=== PATIENT | male | born 1945 ===

== ENCOUNTER 2020-12-17 16:50 | Emergency (ER) | payer MEDICARE, BC ==
--- NOTE | 2020-12-17 17:03 | EDM.PDOC ---
ED HPI GENERAL MEDICAL PROBLEM - General Chief Complaint: Respiratory Problem Stated Complaint: SOB Time Seen by Provider: 12/17/20 17:00 Source of Information: Reports: Patient - History of Present Illness INITIAL COMMENTS - FREE TEXT/NARRATIVE: Patient comes emergency department today by ambulance with concerns of shortness of breath. This patient has a history of chronic kidney disease stage V for which she is on dialysis Friday and Friday. He typically in the [facility]. He is her on vacation. He has a history of CKD end-stage on dialysis hypertension diabetes COPD for which he typically is on a trelogy vent at home. The patient missed his dialysis run yesterday because he had chest pain status post a fall out of his wheelchair he was seen at [facility] emergency department. He was set up to have dialysis tomorrow. But today he has had increasing shortness of breath even at home when he is on his trilogy ventilator at home. He has had no fever or chills. No cough or congestion. He has had some tightness in his chest which is consistent with his shortness of breath when he is fluid overloaded. He has had no weakness dizziness lightheadedness. He is quite dyspneic. No abdominal pain nausea or vomiting. He denies any loss of taste or smell. He has received his Covid vaccine. - Related Data Allergies Allergy/AdvReac Type Severity Reaction Status Date / Time metoprolol Allergy Other Verified 12/17/20 17:04 Penicillins Allergy Other Verified 12/17/20 17:04 Home Meds: Home Meds Albuterol [Proventil HFA] 2 puff INH Q4HR PRN 12/17/20 [History] Apixaban [Eliquis] 1 tab PO BID 12/17/20 [History] Calcium Carbonate [Tums] 1 tab PO BID PRN 12/17/20 [History] Citalopram [Citalopram HBr] 1 tab PO DAILY 12/17/20 [History] Diltiazem HCl [Diltiazem 24Hr Cd] 1 tab PO BID 12/17/20 [History] Esomeprazole Magnesium [Nexium] 1 cap PO BID 12/17/20 [History] Fluticasone/Umeclidin/Vilanter [Trelegy Ellipta 100-62.5-25 MCG] 1 puff INH DAILY 12/17/20 [History] Insulin Aspart [NovoLOG] 10 unit SQ TIDMEALS 12/17/20 [History] Insulin Glargine,Hum.Rec.Anlog [Touchono Max Solostar] 34 unit SQ BEDTIME 12/17/20 [History] Lacosamide [Vimpat] 1 tab PO BID 12/17/20 [History] Lactobacill 46/B.animal/Inulin [Probiotic-10 10 Bill Cell Cap] 1 cap PO DAILY 12/17/20 [History] Melatonin 1 tab PO BEDTIME 12/17/20 [History] Mirtazapine [Remeron] 1 tab PO BEDTIME 12/17/20 [History] Multivitamin [Daily Landon] 1 tab PO DAILY 12/17/20 [History] Phenytoin Sodium Extended [Dilantin] 2 cap PO BID 12/17/20 [History] Pregabalin [Lyrica] 1 cap PO BEDTIME 12/17/20 [History] Sevelamer Carbonate 3 tab PO BID 12/17/20 [History] atorvaSTATin [Lipitor] 2 tab PO BEDTIME 12/17/20 [History] levETIRAcetam [Keppra] 1 tab PO BID 12/17/20 [History] oxyCODONE 1 tab PO Q6HR PRN 12/17/20 [History] ED ROS GENERAL - Review of Systems Review Of Systems: Comprehensive ROS is negative, except as noted in HPI. ED EXAM, GENERAL - Physical Exam Exam: See Below Exam Limited By: No Limitations General Appearance: Alert, WD/WN, No Apparent Distress, Obtunded, Moderate Distress (He is in moderate respiratory distress. He is only able to speak in 2-3 word sentences. He does have some seesaw respirations.), Obese. No: Lethargic Eye Exam: Bilateral Eye: EOMI, PERRL Ears: Normal External Exam Nose: Normal Inspection Throat/Mouth: Normal Inspection Head: Atraumatic, Normocephalic Neck: Normal Inspection Respiratory/Chest: Respiratory Distress (Moderate only able to speak in 2-3 word sentences), Decreased Breath Sounds, Rales (Bilaterally), Wheezing (Expiratory wheezing), Accessory Muscle Use Cardiovascular: Normal Peripheral Pulses, Regular Rate, Rhythm, Other (Distant heart tones) GI/Abdominal: Normal Bowel Sounds, Soft, Non-Tender (Male) Exam: Deferred Rectal (Males) Exam: Deferred Back Exam: Normal Inspection Extremities: Normal Inspection (Fistula left arm. Left lower extremity previous amputation. No cyanosis), Pedal Edema (3+ pitting right lower extremity) Neurological: Alert, Oriented. No: Confused, Disoriented, Slow to Respond, Unresponsive Psychiatric: Flat Affect Skin Exam: Warm, Dry, Intact, Normal Color, No Rash Course - Vital Signs Last Recorded V/S: Last Vital Signs Temp 96.2 F L 12/17/20 16:50 Pulse 77 12/17/20 16:50 Resp 20 12/17/20 16:50 BP 134/57 L 12/18/20 00:33 Pulse Ox 97 12/18/20 00:33 - Orders/Labs/Meds Orders: Active Orders 24 hr Category Date Time Status Accu Check [Blood Glucose Check, Bedside] [RC] ONETIME Care 12/17/20 20:55 Active Accu Check [Blood Glucose Check, Bedside] [RC] ONETIME Care 12/18/20 00:30 Active BIPAP Adult [RT BiPAP/CPAP] [RC] ASDIRECTED Care 12/17/20 17:05 Active EKG Documentation Completion [RC] ASDIRECTED Care 12/18/20 00:28 Active Peripheral IV Care [RC] . DIRECTED Care 12/17/20 17:04 Active RT Aerosol Therapy [RC] ASDIRECTED Care 12/17/20 22:43 Active Chest 1V Frontal [CR] Stat Exams 12/17/20 17:03 Taken Sodium Chloride 0.9% [Saline Flush] Med 12/17/20 17:04 Active 10 ml FLUSH ASDIRECTED PRN Peripheral IV Insertion Adult [OM.PC] Stat Oth 12/17/20 17:03 Ordered Medication Orders Sodium Chloride (Sodium Chloride 0.9% 10 Ml Syringe) 10 ml FLUSH ASDIRECTED PRN PRN Reason: Keep Vein Open Last Admin: 12/17/20 18:58 Dose: 10 ml Documented by: Admin: 12/17/20 17:25 Dose: 10 ml Documented by: JULIO Labs: Laboratory Tests 12/17/20 12/17/20 12/17/20 Range/Units 17:30 17:30 17:30 WBC 8.3 (4.0-10.2) K/uL RBC 3.82 L (4.33-5.41) M/uL Hgb 12.2 L (13.1-16.8) g/dL Hct 37.7 L (39.0-49.0) % MCV 98.7 H (84.0-98.0) fL MCH 31.9 (28.2-33.3) pg MCHC 32.4 (31.7-36.0) g/dL RDW 16.4 H (11.2-14.1) % Plt Count 253 (150-350) K/uL Neut % (Auto) 75.9 (45.0-80.0) % Lymph % (Auto) 11.8 (10.0-50.0) % [place] % (Auto) 10.0 (2.0-14.0) % Eos % (Auto) 1.7 (0.0-5.0) % Baso % (Auto) 0.6 (0.0-2.0) % Neut # (Auto) 6.32 (1.40-7.00) K/uL Lymph # (Auto) 0.98 (0.50-3.50) K/uL [place] # (Auto) 0.83 (0.00-1.00) K/uL Eos # (Auto) 0.14 (0.00-0.50) K/uL Baso # (Auto) 0.05 (0.00-0.20) K/uL POC VBG pH 7.33 (7.31-7.41) POC VBG pCO2 48 (41-51) mmHg POC VBG pO2 132 mmHg POC VBG HCO3 26 (23-28) mmol/L POC Venous O2 Sat 99 % VBG Base Excess 0 (-(2)-3) mmol/L Sodium 136 (136-145) mmol/L Potassium 8.1 H* (3.5-5.1) mmol/L Chloride 98 (98-107) mmol/L Carbon Dioxide 23.9 (21.0-32.0) mmol/L POC Venous Total CO2 27 mmol/L Anion Gap 22.2 H (7-15) meq/L BUN 77 H (7-18) mg/dL Creatinine 10.47 H* (0.51-1.17) mg/dL Est Cr Clr Drug Dosing 6.59 mL/min Estimated GFR (MDRD) 5 mL/min Glucose 240 H (70-99) mg/dL POC Glucose (70-99) mg/dL Lactic Acid (0.4-2.0) mmol/L Calcium 7.8 L (8.5-10.1) mg/dL Magnesium (1.8-2.4) mg/dL Total Bilirubin 0.4 (0.2-1.0) mg/dL AST 26 (15-37) U/L ALT 22 (12-78) U/L Alkaline Phosphatase 195 H (46-116) IU/L Troponin I High Sens 13 (<=76) ng/L C-Reactive Protein 3.3 H (<=0.9) mg/dL NT-Pro-B Natriuret Pep 91980 H (0-125) pg/mL Total Protein 7.3 (6.4-8.2) g/dL Albumin 3.5 (3.4-5.0) g/dL SARS-CoV-2 Ag (Rapid) (NEGATIVE) 12/17/20 12/17/20 12/17/20 Range/Units 17:55 19:10 21:30 WBC (4.0-10.2) K/uL RBC (4.33-5.41) M/uL Hgb (13.1-16.8) g/dL Hct (39.0-49.0) % MCV (84.0-98.0) fL MCH (28.2-33.3) pg MCHC (31.7-36.0) g/dL RDW (11.2-14.1) % Plt Count (150-350) K/uL Neut % (Auto) (45.0-80.0) % Lymph % (Auto) (10.0-50.0) % [place] % (Auto) (2.0-14.0) % Eos % (Auto) (0.0-5.0) % Baso % (Auto) (0.0-2.0) % Neut # (Auto) (1.40-7.00) K/uL Lymph # (Auto) (0.50-3.50) K/uL [place] # (Auto) (0.00-1.00) K/uL Eos # (Auto) (0.00-0.50) K/uL Baso # (Auto) (0.00-0.20) K/uL POC VBG pH (7.31-7.41) POC VBG pCO2 (41-51) mmHg POC VBG pO2 mmHg POC VBG HCO3 (23-28) mmol/L POC Venous O2 Sat % VBG Base Excess (-(2)-3) mmol/L Sodium (136-145) mmol/L Potassium 7.6 H* (3.5-5.1) mmol/L Chloride (98-107) mmol/L Carbon Dioxide (21.0-32.0) mmol/L POC Venous Total CO2 mmol/L Anion Gap (7-15) meq/L BUN (7-18) mg/dL Creatinine (0.51-1.17) mg/dL Est Cr Clr Drug Dosing mL/min Estimated GFR (MDRD) mL/min Glucose (70-99) mg/dL POC Glucose (70-99) mg/dL Lactic Acid 1.6 (0.4-2.0) mmol/L Calcium (8.5-10.1) mg/dL Magnesium (1.8-2.4) mg/dL Total Bilirubin (0.2-1.0) mg/dL AST (15-37) U/L ALT (12-78) U/L Alkaline Phosphatase (46-116) IU/L Troponin I High Sens (<=76) ng/L C-Reactive Protein (<=0.9) mg/dL NT-Pro-B Natriuret Pep (0-125) pg/mL Total Protein (6.4-8.2) g/dL Albumin (3.4-5.0) g/dL SARS-CoV-2 Ag (Rapid) Negative (NEGATIVE) 12/17/20 12/17/20 12/17/20 Range/Units 21:30 21:48 23:50 WBC (4.0-10.2) K/uL RBC (4.33-5.41) M/uL Hgb (13.1-16.8) g/dL Hct (39.0-49.0) % MCV (84.0-98.0) fL MCH (28.2-33.3) pg MCHC (31.7-36.0) g/dL RDW (11.2-14.1) % Plt Count (150-350) K/uL Neut % (Auto) (45.0-80.0) % Lymph % (Auto) (10.0-50.0) % [place] % (Auto) (2.0-14.0) % Eos % (Auto) (0.0-5.0) % Baso % (Auto) (0.0-2.0) % Neut # (Auto) (1.40-7.00) K/uL Lymph # (Auto) (0.50-3.50) K/uL [place] # (Auto) (0.00-1.00) K/uL Eos # (Auto) (0.00-0.50) K/uL Baso # (Auto) (0.00-0.20) K/uL POC VBG pH (7.31-7.41) POC VBG pCO2 (41-51) mmHg POC VBG pO2 mmHg POC VBG HCO3 (23-28) mmol/L POC Venous O2 Sat % VBG Base Excess (-(2)-3) mmol/L Sodium (136-145) mmol/L Potassium 6.0 H* D (3.5-5.1) mmol/L Chloride (98-107) mmol/L Carbon Dioxide (21.0-32.0) mmol/L POC Venous Total CO2 mmol/L Anion Gap (7-15) meq/L BUN (7-18) mg/dL Creatinine (0.51-1.17) mg/dL Est Cr Clr Drug Dosing mL/min Estimated GFR (MDRD) mL/min Glucose (70-99) mg/dL POC Glucose 102 H (70-99) mg/dL Lactic Acid (0.4-2.0) mmol/L Calcium (8.5-10.1) mg/dL Magnesium 2.4 (1.8-2.4) mg/dL Total Bilirubin (0.2-1.0) mg/dL AST (15-37) U/L ALT (12-78) U/L Alkaline Phosphatase (46-116) IU/L Troponin I High Sens (<=76) ng/L C-Reactive Protein (<=0.9) mg/dL NT-Pro-B Natriuret Pep (0-125) pg/mL Total Protein (6.4-8.2) g/dL Albumin (3.4-5.0) g/dL SARS-CoV-2 Ag (Rapid) (NEGATIVE) Meds: Medications Generic Name Dose Route Start Last Admin Trade Name Kristin PRN Reason Stop Dose Admin Sodium Chloride 10 ml 12/17/20 17:04 12/17/20 18:58 Sodium Chloride 0.9% 10 Ml Syringe FLUSH 10 ml ASDIRECTED PRN Administration Keep Vein Open Discontinued Medications Generic Name Dose Route Start Last Admin Trade Name Kristin PRN Reason Stop Dose Admin Albuterol 10 mg 12/17/20 22:42 12/17/20 22:59 Albuterol 0.083% 2.5 Mg/3 Ml Neb Soln NEB 12/17/20 22:43 10 mg ONETIME ONE Administration Dextrose/Water 50 ml 12/17/20 18:31 12/17/20 18:53 50% Dextrose In Water 50 Ml Syringe IVPUSH 12/17/20 18:32 50 ml ONETIME ONE Administration Dextrose/Water 50 ml 12/17/20 22:10 12/17/20 22:25 50% Dextrose In Water 50 Ml Syringe IVPUSH 12/17/20 22:11 50 ml ONETIME ONE Administration Dextrose/Water Confirm 12/18/20 00:50 50% Dextrose In Water 50 Ml Syringe Administered 12/18/20 00:51 Dose 50 ml .ROUTE .STK-MED ONE Dextrose/Water 50 ml 12/18/20 00:52 50% Dextrose In Water 50 Ml Syringe IVPUSH 12/18/20 00:53 ONETIME ONE Furosemide 120 mg 12/17/20 21:56 12/17/20 22:35 Furosemide 40 Mg/4 Ml Vial IVPUSH 12/17/20 21:57 120 mg NOW ONE Administration Nitroglycerin/Dextrose 25 mg in 250 mls @ 6 mls/hr 12/17/20 17:15 Nitroglycerin 25 Mg/D5w 250 Ml IV TITRATE NINFA Protocol 10 MCG/MIN Calcium Gluconate 1 gm/ Sodium 110 mls @ 100 mls/hr 12/17/20 18:31 12/17/20 19:04 Chloride IV 12/17/20 19:36 100 mls/hr NOW STA Administration Calcium Gluconate 1 gm/ Sodium 110 mls @ 100 mls/hr 12/17/20 22:17 12/17/20 22:44 Chloride IV 12/17/20 23:22 100 mls/hr NOW STA Administration Insulin Human Regular 12 unit 12/17/20 18:31 12/17/20 18:50 Insulin Regular, Human 100 Units/Ml 3 Ml Vial IV 12/17/20 18:32 12 units ONETIME ONE Administration Insulin Human Regular 10 unit 12/17/20 22:10 12/17/20 22:28 Insulin Regular, Human 100 Units/Ml 3 Ml Vial IV 12/17/20 22:11 10 units ONETIME ONE Administration Morphine Sulfate 2 mg 12/17/20 17:04 12/17/20 17:24 Morphine 2 Mg/Ml Syringe IVPUSH 12/17/20 17:05 2 mg ONETIME ONE Administration Sodium Bicarbonate 50 meq 12/17/20 18:31 12/17/20 18:59 Sodium Bicarbonate 8.4% 50 Meq/50 Ml Syringe IVPUSH 12/17/20 18:32 50 meq ONETIME ONE Administration Sodium Bicarbonate 50 meq 12/17/20 22:12 12/17/20 22:29 Sodium Bicarbonate 8.4% 50 Meq/50 Ml Syringe IVPUSH 12/17/20 22:13 50 meq ONETIME ONE Administration Sodium Polystyrene Sulfonate 60 gm 12/17/20 19:00 12/17/20 20:15 Sodium Polystyrene Sulfonate 15 Gm/60 Ml Susp 60 Ml Bot PO 12/17/20 19:01 60 gm NOW ONE Administration - Radiology Interpretation Free Text/Narrative:: 1 view of the chest initially reviewed extemporaneously by myself shows a rather large cardiac silhouette.With moderate pulmonary vascular congestion. Radiology report as below Patient Name: SANCHEZ ALEJANDRE Date of : 1945 Procedure: XRAY CHEST 1 VIEW Date of Service: 12/17/2020 EXAM: XRAY CHEST 1 VIEW INDICATION: ICD-10 R06.02 SOB (shortness of breath) COMPARISON(S): December 16, 2020 FINDINGS: Lungs: Some added density at the lung bases noted, right worse than left, relates to bronchovascular crowding and atelectatic change. Less conspicuous atelectatic changes noted left base. No focal infiltrate to suggest an acute pneumonia. Heart: Generous size heart. Pleura: Chronic appearing right hemidiaphragmatic elevation.. Mediastinum/kezia: Normal in size and contour. Vascular: There is pulmonary vascular congestion without evidence for overt edema.. Osseous: Prior sternotomy. Old healed rib fractures. Soft tissue: Unremarkable. Other: None significant. IMPRESSION: 1. Generous size heart and pulmonary vascular congestion. No obvious edema, a component of CHF must be considered and correlated clinically. Slightly worsening vascular congestion as compared to yesterday. 2. Right hemidiaphragmatic elevation with right basilar atelectasis and bronchovascular crowding. Lesser degree atelectasis on the left. No focal infiltrate suggested. 3. Evidence for prior median sternotomy. Probable cardiac intervention. 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 Patient was placed on BiPAP with an IPAP of 15, EPAP of 5, FiO2 at 40%. Patient tolerated this well. Morphine 2 mg IV push. EKG shows a atrial fibrillation with a right bundle branch block. No EKG here previously. I am unable to see the EKG that was completed at [facility] but the verbalized interpretation from yesterday shows a sinus rhythm with first-degree AV block with occasional premature ventricular complexes. Intraventricular conduction delay possible right ventricular hypertrophy. According to the the patient does have intermittent atrial fibrillation for which she is on Eliquis for. Patient does not make urine. Laboratory evaluation with a CBC 8.3, hemoglobin 12.2, platelets 253. Venous blood gases with a pH of 7.33, PCO2 48, bicarb 26 base excess 0. He is clearly not in hypercapnic respiratory failure. CMP with a potassium 8.1, creatinine 10.47, BUN 77, anion gap 22.2, glucose 240 Lactic acid is normal at 1.6. proBNP 90325 Covid is negative. Patient given calcium gluconate, dextrose, IV insulin, sodium bicarbonate due to his hyperkalemia. [facility], [facility], [place] contacted no beds available. I called and spoke with a acid bleacher at [facility] in [place]. HPI ER course findings and concerns were relayed to the acid bleacher. He relates that this patient is too unstable for there tertiary care center with an ICU and nephrology. They do have a bed available on the floor but not stable enough for transport. Kayexalate and drive potassium down more and he can be transfered. The patient does not make urine so we are unable to give him Lasix for his hyper kalemia. We will keep him on BiPAP as he is tolerating this quite well and his respiratory distress is resolved. His oxygen saturation is appropriate. We will give him Kayexalate orally at this time and repeat his labs. 12/17/20 22:58 Potassium still 7.1 has been off bipap for about an hour although his distress has returned. Repeat Ca, Insulin, Dextrose, Sodium Bicarb, as well as albuterol 10mg nebulizer. No stool from the kayexalate. 12/18/20 00:55 Potassium down to 6.0. I called and spoke with Dr. Tafoya, [facility] findings and concerns were relayed to her verbally over the phone. The EKG has improved. She accepted the patient in transfer at this time. The patients blood sugar did dip to 44. Amp of D50 given and also a meal. I discussed the plan of care with the patient as well as his they are comfortable with this plan. Departure - Departure Time of Disposition: 00:54 Disposition: DC[facility] Clinical Impression: End stage renal disease on dialysis, Hyperkalemia, Hypoxia Fluid overload Qualifiers: Hypervolemia type: other Qualified Code(s): E87.79 - Other fluid overload - Discharge Information Referrals: PCP,None [Primary Care Provider] - Forms: ED Department Discharge, Interfacility Transfer [facility] Sepsis Event Note (ED) - Evaluation Sepsis Screening Result: No Definite Risk - Focused Exam Vital Signs: Vital Signs Temp Pulse Resp BP Pulse Ox 12/18/20 00:33 134/57 L 97 12/17/20 16:50 96.2 F L 77 20 152/111 H 98 - My Orders Last 24 Hours: My Active Orders 12/17/20 17:03 Chest 1V Frontal [CR] Stat Peripheral IV Insertion Adult [OM.PC] Stat 12/17/20 17:04 Peripheral IV Care [RC] . DIRECTED Sodium Chloride 0.9% [Saline Flush] 10 ml FLUSH ASDIRECTED PRN 12/17/20 17:05 BIPAP Adult [RT BiPAP/CPAP] [RC] ASDIRECTED 12/17/20 20:55 Accu Check [Blood Glucose Check, Bedside] [RC] ONETIME 12/17/20 22:43 RT Aerosol Therapy [RC] ASDIRECTED 12/18/20 00:28 EKG Documentation Completion [RC] ASDIRECTED 12/18/20 00:30 Accu Check [Blood Glucose Check, Bedside] [RC] ONETIME - Assessment/Plan Last 24 Hours: My Active Orders 12/17/20 17:03 Chest 1V Frontal [CR] Stat Peripheral IV Insertion Adult [OM.PC] Stat 12/17/20 17:04 Peripheral IV Care [RC] . DIRECTED Sodium Chloride 0.9% [Saline Flush] 10 ml FLUSH ASDIRECTED PRN 12/17/20 17:05 BIPAP Adult [RT BiPAP/CPAP] [RC] ASDIRECTED 12/17/20 20:55 Accu Check [Blood Glucose Check, Bedside] [RC] ONETIME 12/17/20 22:43 RT Aerosol Therapy [RC] ASDIRECTED 12/18/20 00:28 EKG Documentation Completion [RC] ASDIRECTED 12/18/20 00:30 Accu Check [Blood Glucose Check, Bedside] [RC] ONETIME
[2020-12-17] MEDS ORDERED: Morphine 2 MG/ML SYRINGE IVPUSH ONE (17:04)
[2020-12-17] MEDS ORDERED: Nitroglycerin/D5W 25 MG/250 ML BOTTLE IV SCH (17:15)
[2020-12-17] MEDS: Sodium Chloride 0.9% 10 ML Syringe FLUSH PRN ×2 (17:25→18:58)
--- NOTE | 2020-12-17 18:00 | PCM.EKG ---
#1 Interpretation EKG Date: 12/17/20 Time: 17:30 Rhythm: A-Fib Rate (Beats/Min): 71 [place]: Normal P-Wave: Present QRS: RBBB ST-T: Normal QT: Normal Comparison: NA - No Prior EKG
[2020-12-17 18:29] LABS: ANION GAP 22.2 meq/L (7-15)
[2020-12-17] MEDS ORDERED: Insulin Regular, Human 100 Units/ML 3 ML Vial IV ONE ×2 (18:31→22:10)
[2020-12-17] MEDS ORDERED: 50% Dextrose in Water 50 ML Syringe IVPUSH ONE ×2 (18:31→22:10)
[2020-12-17] MEDS ORDERED: Sodium Bicarbonate 8.4% 50 MEQ/50 ML Syringe IVPUSH ONE ×2 (18:31→22:12)
[2020-12-17] MEDS ORDERED: Calcium Gluconate 1 GM in Sodium Chloride 0.9% 100 ML IV STA ×2 (18:31→22:17)
[2020-12-17] MEDS ORDERED: Sodium Polystyrene Sulfonate 15 GM/60 ML Susp 60 ML Bot PO ONE (19:00)
[2020-12-17] MEDS ORDERED: Furosemide 40 MG/4 ML VIAL IVPUSH ONE (21:56)
[2020-12-17] MEDS ORDERED: Albuterol 0.083% 2.5 MG/3 ML Neb Soln NEB ONE (22:42)
[2020-12-18] MEDS ORDERED: 50% Dextrose in Water 50 ML Syringe ONE (00:50)
[2020-12-18] MEDS ORDERED: 50% Dextrose in Water 50 ML Syringe IVPUSH ONE (00:52)
--- NOTE | 2020-12-18 00:55 | PCM.EKG ---
#1 Interpretation EKG Date: 12/18/20 Time: 00:44 Rhythm: Other (1st degree AV block) Rate (Beats/Min): 80 [place]: Normal P-Wave: Present QRS: Other (Incomplete right bundle branch block.) ST-T: Normal QT: Normal Comparison: Change From Previous EKG (Back to EKG from 12/16/20. Out of Afib.)
== END 2020-12-18 01:55 ==
LOC: LL.ED 16:50
DX: R09.02 Hypoxemia (principal); I12.0 Hypertensive chronic kidney disease with stage 5 chronic kidney disease or end stage renal disease; E11.22 Type 2 diabetes mellitus with diabetic chronic kidney disease; N18.6 End stage renal disease; E87.5 Hyperkalemia; Z99.2 Dependence on renal dialysis; Z88.0 Allergy status to penicillin; Z88.8 Allergy status to other drugs, medicaments and biological substances; Z79.01 Long term (current) use of anticoagulants; Z79.899 Other long term (current) drug therapy; Z20.822 Contact with and (suspected) exposure to COVID-19
CPT/HCPCS: 36415; 71045; 80053; 82803; 82947; 83605; 83735; 83880; 84132; 84484; 85025; 86140; 87426; 93005; 93010; 94640; 94660; 96365; 96366; 96375; 96376; 99284; 99285-25; A9270-GY; J0610; J1815-GY; J1940; J2270; J7613-GY